=== PATIENT | male | born 1985 | race Caucasian/White ===

== ENCOUNTER 2018-04-11 12:35 | Emergency (ER) | payer SELFPAY ==
[~2018-04-11] VITALS: Ht 182.9 cm; Wt 90.9 kg
[~2018-04-11 12:35] MED LIST: FLUO40CA7 PO; LORA1TAB3 PO; MARIJUANA; MIRT15TA6 PO
[2018-04-11 13:17] LABS: BASOPHILS % (AUTO) 0.7 % (0.0-2.0); HEMATOCRIT 49.4 % (41-53); HEMOGLOBIN 18.3 g/dL (13.5-17.5); LYMPHOCYTES # (AUTO) 1.8 K/uL (1.0-4.8); LYMPHOCYTES % (AUTO) 22.9 % (22.0-44.0); MEAN CORPUSCULAR HEMOGLOBIN 32.7 pg (26.0-34.0); MEAN CORPUSCULAR VOLUME 88 fL (80-100); MONOCYTES # (AUTO) 0.8 K/uL (0.1-1.0); MONOCYTES % (AUTO) 9.8 % (2.0-9.0); NEUTROPHILS # (AUTO) 5.2 K/uL (1.8-7.7); NEUTROPHILS % (AUTO) 65.6 % (40.0-70.0); PLATELET COUNT (AUTO) 277 K/uL (150-450); RED CELL DISTRIBUTION WIDTH 12.3 % (11.5-14.5)
[2018-04-11 13:36] LABS: ANION GAP 11 mmol/L (8-16); CALCIUM, TOTAL 8.9 mg/dL (8.8-10.5); CARBON DIOXIDE 26 mmol/L (22-29); CHLORIDE 95 mmol/L (98-107); CREATININE 0.94 mg/dL (0.60-1.30); GLOMERULAR FILTR. RATE CALC > 60 mL/min (>60); GLUCOSE,RANDOM 114 mg/dL (70-110); POTASSIUM 3.6 mmol/L (3.5-5.1); SODIUM SERUM 132 mmol/L (136-145); UREA NITROGEN, BLOOD 15 mg/dL (7-18)
[2018-04-11 13:40] LABS: ALANINE AMINOTRANSFERASE 26 U/L (12-78); ALBUMIN 4.5 g/dL (3.4-5.0); ALKALINE PHOSPHATASE 75 U/L (46-116); ASPARTATE AMINOTRANSFERASE 22 U/L (15-37); BILIRUBIN,TOTAL 1.7 mg/dL (0.1-1.0); LIPASE 114 U/L (73-393); TOTAL PROTEIN, SERUM 7.7 g/dL (6.4-8.2)
[2018-04-11] MEDS ORDERED: DiphenhydrAMINE HCL 50 MG/ML VIAL IVP ONE (13:45)
[2018-04-11] MEDS ORDERED: SODIUM CHLORIDE 0.9% 1,000 ML IV ONE ×2 (13:45→16:15)
[2018-04-11] MEDS ORDERED: HALOPERIDOL LACTATE 5 MG/ML VIAL IVP ONE (13:45)
[2018-04-11] MEDS ORDERED: ONDANSETRON HCL 4 MG/2 ML VIAL IVP ONE (13:45)
[2018-04-11 16:18] LABS: APPEARANCE,URINE CLEAR (CLEAR); GLUCOSE, URINE (UA) NEGATIVE (NEGATIVE); KETONES,URINE >=80 mg/dL (NEGATIVE); LEUKOCYTE ESTERASE ,URINE SMALL (NEGATIVE); NITRATE,URINE NEGATIVE (NEGATIVE); OCCULT BLOOD,URINE NEGATIVE (NEGATIVE); PROTEIN,URINE POS 1+ (NEGATIVE)
[2018-04-11 16:22] LABS: AMPHET/METH SCREEN,URINE NEGATIVE (NEGATIVE); BARBITURATE SCREEN, URINE NEGATIVE (NEGATIVE); BENZODIAZEPINES SCREEN,URINE NEGATIVE (NEGATIVE); BILIRUBIN,URINE PRELIM. POSITIVE (NEGATIVE); CANNABINOID SCREEN,URINE POSITIVE (NEGATIVE); COCAINE SCREEN,URINE NEGATIVE (NEGATIVE); METHADONE SCREEN, URINE NEGATIVE (NEGATIVE); OPIATE SCREEN,URINE NEGATIVE (NEGATIVE); PHENCYCLIDINE SCREEN,URINE NEGATIVE (NEGATIVE)
[2018-04-11 16:27] LABS: BACTERIA,URINE None Seen /HPF (None Seen); RBC,URINE None Seen /HPF (0-2); SQUAMOUS EPITHELIAL CELL,UR Few /LPF (None Seen)
[2018-04-11 17:10] VITALS: BP 135/74
== END 2018-04-11 17:35 | disposition home or self-care (01) ==
LOC: EMS 12:36
DX: K31.89 Other diseases of stomach and duodenum (principal); R11.2 Nausea with vomiting, unspecified; F12.20 Cannabis dependence, uncomplicated; F41.9 Anxiety disorder, unspecified; K21.9 Gastro-esophageal reflux disease without esophagitis
CPT/HCPCS: 36415; 80053; 80307; 81001; 83690; 85025; 87086; 96361; 96374; 96375; 99284; J1200; J1630; J2405; J7030